=== PATIENT | female | born 2000 | race American Indian/Alaskan Native ===

== ENCOUNTER 2019-02-19 05:46 | Emergency (ER) | payer SELFPAY ==
[2019-02-19 06:22] VITALS: BMI 28.9
[2019-02-19 06:52] LABS: URINE BILIRUBIN SMALL (NEGATIVE); URINE BLOOD LARGE (NEGATIVE); URINE GLUCOSE (UA) NEGATIVE (NEGATIVE); URINE LEUKOCYTE ESTERASE TRACE Leu/uL (NEGATIVE); URINE PROTEIN 100 mg/dL (<30 mg/dL)
[2019-02-19 06:55] LABS: URINE APPEARANCE CLOUDY (CLEAR); URINE COLOR YELLOW (YELLOW)
[2019-02-19] MEDS ORDERED: cefTRIAXone (Rocephin) 250 mg Inj IM STA (07:14)
--- NOTE | 2019-02-19 07:19 | ED PDOC ---
Arrival/HPI - General Chief Complaint: Female Genitourinary Time Seen by Provider: 02/19/19 07:11 Historian: Patient - History of Present Illness Narrative History of Present Illness (Text): 02/19/19 07:11 Moon Jones is a 18 year old female, with no significant past medical history, who presents to the emergency department complaining of vaginal discharge since 1 month. Patient notes foul smelling urine and dysuria. Patient informs of sexual activity without protection. Patient is concerned for STD. Patient did not seek medical attention for current complaints. Patient denies any fevers, chills, headache, dizziness, chest pain, shortness of breath, dyspnea on exertion, cough, diaphoresis, abdominal pain, nausea, vomiting, diarrhea, hematuria, back pain, neck pain, rash, or any other complaint. Time/Duration: < month Symptom Onset: Gradual Symptom Course: Unchanged Activities at Onset: Light Context: Home Past Medical History - Provider Review Nursing Documentation Reviewed: Yes - Cardiac Hx Cardiac Disorders: No - Pulmonary Hx Respiratory Disorders: Yes Hx Asthma: Yes - Neurological Hx Neurological Disorder: No - HEENT Hx HEENT Disorder: No - Renal Hx Renal Disorder: No - Endocrine/Metabolic Hx Endocrine Disorders: No - Hematological/Oncological Hx Blood Disorders: No - Integumentary Hx Dermatological Disorder: No - Musculoskeletal/Rheumatological Hx Musculoskeletal Disorders: No - Gastrointestinal Hx Gastrointestinal Disorders: No - Genitourinary/Gynecological Hx Genitourinary Disorders: No - Psychiatric Hx Psychophysiologic Disorder: No Hx Substance Use: Yes - Anesthesia Hx Anesthesia: No Family/Social History - Physician Review Nursing Documentation Reviewed: Yes Family/Social History: Unknown Family HX Smoking Status: Never Smoked Hx Alcohol Use: Yes Frequency of alcohol use: Socially Hx Substance Use: Yes Substance used: Marijuana Allergies/Home Meds Allergies/Adverse Reactions: Allergies No Known Allergies Allergy (Unverified 02/19/19 07:01) Review of Systems - Physician Review All systems were reviewed & negative as marked: Yes - Review of Systems Constitutional: absent: Fevers, Other (chills) Respiratory: absent: SOB, Cough Cardiovascular: absent: Chest Pain, PASCUAL Gastrointestinal: absent: Abdominal Pain, Diarrhea, Nausea, Vomiting Genitourinary Female: Dysuria, Vaginal Discharge, Other (foul smelling urine). absent: Hematuria Musculoskeletal: absent: Back Pain, Neck Pain Skin: absent: Rash Neurological: absent: Headache, Dizziness Physical Exam Vital Signs Reviewed: Yes Vital Signs Temp Pulse Resp BP Pulse Ox 02/19/19 06:22 98.3 F 76 16 124/71 100 Temperature: Afebrile Blood Pressure: Normal Pulse: Regular Respiratory Rate: Normal Appearance: Positive for: Well-Appearing, Non-Toxic, Comfortable Pain Distress: None Mental Status: Positive for: Alert and Oriented X 3 - Systems Exam Head: Present: Atraumatic, Normocephalic Pupils: Present: PERRL Extroacular Muscles: Present: EOMI Conjunctiva: Present: Normal Mouth: Present: Moist Mucous Membranes Neck: Present: Normal Range of Motion Respiratory/Chest: Present: Clear to Auscultation, Good Air Exchange. No: Respiratory Distress, Accessory Muscle Use, Wheezes, Rales, Rhonchi Cardiovascular: Present: Regular Rate and Rhythm, Normal S1, S2. No: Murmurs, Rub, Gallop Abdomen: Present: Tenderness, Normal Bowel Sounds. No: Distention, Peritoneal Signs, Rebound, Guarding Genitourinary/Pelvic Exam: Present: Vaginal Discharge. No: Vaginal Bleeding Back: Present: Normal Inspection Upper Extremity: Present: Normal Inspection, NORMAL PULSES, Neurovascularly Intact, Capillary Refill < 2s. No: Cyanosis, Edema, Tenderness, Swelling Lower Extremity: Present: Normal Inspection, NORMAL PULSES, Neurovascularly Intact, Capillary Refill < 2 s. No: Edema, Tenderness, Swelling Neurological: Present: GCS=15, CN II-XII Intact, Speech Normal, Motor Func Grossly Intact, Normal Sensory Function Skin: Present: Warm, Dry, Normal Color. No: Rashes Psychiatric: Present: Alert, Oriented x 3, Normal Insight, Normal Concentration Medical Decision Making ED Course and Treatment: 02/19/19 07:11 Impression: Patient is a 18 year old female who presents to the emergency department complaining of vaginal discharge since 1 month. Patient did not seek medical attention for current complaints. Patient informs of sexual activity without protection. Denies pain or fevers. Plan: -- Rocephin -- Zithromax -- Urine Culture -- POC Urine Test -- Urinalysis w/ Micro -- Reassess and disposition Prior Visits: Notes and results from previous visits were reviewed. Progress Notes: 02/19/19 13:36 pt well appearin gabd soft no ttp. minimal vd noted. will tx for std. refuses testing. ua treated. stable for outpt mangement. return precautiosn advid. - Lab Interpretations Lab Results: Urine Color Yellow (YELLOW) 02/19/19 06:28 Urine Appearance Cloudy (CLEAR) 02/19/19 06:28 Urine pH 6.0 (4.7-8.0) 02/19/19 06:28 Ur Specific [place] >= 1.030 (1.005-1.035) 02/19/19 06:28 Urine Protein 100 mg/dL (<30 mg/dL) H 02/19/19 06:28 Urine Glucose (UA) Negative mg/dL (NEGATIVE) 02/19/19 06:28 Urine Ketones 15 mg/dL (NEGATIVE) H 02/19/19 06:28 Urine Blood Large (NEGATIVE) H 02/19/19 06:28 Urine Nitrate Negative (NEGATIVE) 02/19/19 06:28 Urine Bilirubin Small (NEGATIVE) H 02/19/19 06:28 Urine Urobilinogen 1.0 E.U./dL (<1 E.U./dL) H 02/19/19 06:28 Ur Leukocyte Esterase Trace Dewayne/uL (NEGATIVE) H 02/19/19 06:28 - Medication Orders Current Medication Orders: Discontinued Medications Azithromycin (Zithromax) 1,000 mg PO STAT STA; Protocol Stop: 02/19/19 07:15 Ceftriaxone Sodium (Rocephin) 250 mg IM STAT STA; Protocol Stop: 02/19/19 07:15 - Scribe Statement The provider has reviewed the documentation as recorded by the Scribjennifer Baig All medical record entries made by the Scribe were at my direction and personally dictated by me. I have reviewed the chart and agree that the record accurately reflects my personal performance of the history, physical exam, medical decision making, and the department course for this patient. I have also personally directed, reviewed, and agree with the discharge instructions and disposition. Disposition/Present on Arrival - Present on Arrival Any Indicators Present on Arrival: No History of DVT/PE: No History of Uncontrolled Diabetes: No Urinary Catheter: No History of Decub. Ulcer: No History Surgical Site Infection Following: None - Disposition Have Diagnosis and Disposition been Completed?: Yes Diagnosis: Vaginal discharge, UTI (urinary tract infection) Disposition: HOME/ ROUTINE Disposition Time: 08:00 Condition: STABLE Discharge Instructions (ExitCare): Urinary Tract Infections in Adults, Screening for Sexually Transmitted Infections, Vaginal Discharge in Adults Additional Instructions: return to er with worsening symptoms or concerns. Prescriptions: Nitrofurantoin Macrocrystals [Macrobid] 100 mg PO BID #14 cap Referrals: [facility] [Outside] - Follow up with primary [facility] at [facility] [place]] - Follow up with primary [facility] at [facility] [Outside] - Follow up with primary [facility] [Outside] - Follow up with primary Forms: [employer] (Sinhala)
[2019-02-19 07:21] LABS: URINE BACTERIA MANY /hpf; URINE EPITHELIAL CELLS MANY /hpf (0-5); URINE RBC 25 - 30 /hpf (0-2)
[2019-02-19 07:23] LABS: URINE COARSE GRANULAR CAST TRACE /hpf
[2019-02-19 08:34] VITALS: BP 118/76; PULSE 78; RESP 18; TEMP 98; O2SAT 99
== END 2019-02-19 08:36 | disposition home or self-care (01) ==
LOC: ED 05:46
DX: N39.0 Urinary tract infection, site not specified (principal); N89.8 Other specified noninflammatory disorders of vagina
CPT/HCPCS: 81001; 81025; 87086; 96372; 99283; J0696

== ENCOUNTER 2019-03-06 16:52 | Emergency (ER) | payer OTHER ==
[2019-03-06 16:53] VITALS: BMI 28.9
[2019-03-06] MEDS ORDERED: cefTRIAXone (Rocephin) 250 mg Inj IM STA (18:31)
--- NOTE | 2019-03-06 18:37 | ED PDOC ---
Arrival/HPI - General Historian: Patient - History of Present Illness Narrative History of Present Illness (Text): 03/06/19 18:34 Patient is a 18yo F with no significant PMH presenting to ED with vaginal discharge. She reports it began 1 month ago, and describes it as a thick white discharge with associated itch. She was previously treated in the ED on 02/19 for UTI and Chlamydia/Gonorrhea, and completed a course of Macrobid. She reports remaining sexually active with the same partner as before, without using protection. She denies previous history of pregnancies. She denies fever, chills, nausea, vomiting, abdominal pain, dysuria. She denies blood in the urine, joint pains, or rashes. FD of LMP 02/10 Time/Duration: > month Symptom Onset: Sudden Symptom Course: Unchanged <Jordin Breen - Last Filed: 03/06/19 19:50> <Alondra Bess - Last Filed: 03/06/19 20:07> - General Chief Complaint: Female Genitourinary Time Seen by Provider: 03/06/19 18:34 Past Medical History - Provider Review Primary Care Physician: NO FAMILY PROVIDER - Cardiac Hx Cardiac Disorders: No - Pulmonary Hx Respiratory Disorders: Yes Hx Asthma: Yes - Neurological Hx Neurological Disorder: No - HEENT Hx HEENT Disorder: No - Renal Hx Renal Disorder: No - Endocrine/Metabolic Hx Endocrine Disorders: No - Hematological/Oncological Hx Blood Disorders: No - Integumentary Hx Dermatological Disorder: No - Musculoskeletal/Rheumatological Hx Musculoskeletal Disorders: No - Gastrointestinal Hx Gastrointestinal Disorders: No - Genitourinary/Gynecological Hx Genitourinary Disorders: No - Psychiatric Hx Psychophysiologic Disorder: No Hx Substance Use: Yes - Anesthesia Hx Anesthesia: No <Jordin Breen - Last Filed: 03/06/19 19:50> - Provider Review Primary Care Physician: NO FAMILY PROVIDER <Alondra Bess - Last Filed: 03/06/19 20:07> Family/Social History Family/Social History: No Known Family HX Smoking Status: Light Smoker < 10 Cigarettes Daily Hx Alcohol Use: Yes Frequency of alcohol use: Socially Hx Substance Use: Yes Substance used: Marijuana <Jordin Breen - Last Filed: 03/06/19 19:50> Allergies/Home Meds <Jordin Breen - Last Filed: 03/06/19 19:50> <BessAlondra - Last Filed: 03/06/19 20:07> Allergies/Adverse Reactions: Allergies No Known Allergies Allergy (Verified 03/06/19 17:00) Review of Systems - Review of Systems Constitutional: Normal Eyes: Normal ENT: Normal Respiratory: Normal Cardiovascular: Normal Gastrointestinal: Normal Genitourinary Female: Vaginal Discharge. absent: Dysuria Musculoskeletal: Normal Skin: Normal Neurological: Normal Endocrine: Normal Hemo/Lymphatic: Normal Psychiatric: Normal <Jordin Breen - Last Filed: 03/06/19 19:50> Physical Exam Vital Signs Reviewed: Yes Vital Signs Temp Pulse Resp BP Pulse Ox 03/06/19 16:56 98.5 F 78 18 108/68 99 Temperature: Afebrile Blood Pressure: Normal Pulse: Regular Respiratory Rate: Normal Appearance: Positive for: Well-Appearing, Non-Toxic, Comfortable Pain Distress: None Mental Status: Positive for: Alert and Oriented X 3 - Systems Exam Head: Present: Atraumatic, Normocephalic Extroacular Muscles: Present: EOMI Mouth: Present: Moist Mucous Membranes Respiratory/Chest: No: Respiratory Distress, Accessory Muscle Use Cardiovascular: Present: Regular Rate and Rhythm Abdomen: No: Tenderness, Distention Genitourinary/Pelvic Exam: Present: Normal External Genitalia, Vaginal Discharge (thick white discharge in vaginal canal), Odor (fishy odor). No: Vaginal Bleeding, Vaginal Lesions Upper Extremity: Present: Normal Inspection. No: Cyanosis, Edema Lower Extremity: Present: Normal Inspection. No: Edema Neurological: Present: GCS=15, Speech Normal Skin: Present: Warm, Normal Color. No: Dry, Rashes Psychiatric: Present: Alert, Oriented x 3, Normal Insight, Normal Concentration <Jordin Breen - Last Filed: 03/06/19 19:50> Vital Signs Temp Pulse Resp BP Pulse Ox 03/06/19 18:53 72 16 102/59 L 99 03/06/19 16:56 98.5 F 78 18 108/68 99 <BessAlondra - Last Filed: 03/06/19 20:07> Medical Decision Making ED Course and Treatment: 03/06/19 18:39 Likely Vaginal Candidiasis, Treat for Bacterial Vaginosis, Gonorrhea and Chlamydia. - UA - POC - GC/Chlamydia Urine - 1 dose Diflucan - Rocephin IM - Azithromycin - Flagyl Counseled patient on importance of safe sex practices and need to follow up with [facility]. - Medication Orders Current Medication Orders: Azithromycin (Zithromax) 1,000 mg PO STAT STA; Protocol Stop: 03/06/19 18:33 Ceftriaxone Sodium (Rocephin) 250 mg IM STAT STA; Protocol Stop: 03/06/19 18:32 Fluconazole (Diflucan) 150 mg PO STAT STA; Protocol Stop: 03/06/19 18:32 Metronidazole (Flagyl) 500 mg PO STAT STA; Protocol Stop: 03/06/19 18:31 <Jordin Breen - Last Filed: 03/06/19 19:50> ED Course and Treatment: 03/06/19 20:07 Patient Seen with Resident: In agreement with resident note which contains more details about the patient. Patient seen and evaluated with resident. Came up with plan and treatment together. - Lab Interpretations Lab Results: Urine Color Yellow (YELLOW) 03/06/19 18:30 Urine Appearance Cloudy (CLEAR) 03/06/19 18:30 Urine pH 8.0 (4.7-8.0) 03/06/19 18:30 Ur Specific [place] 1.020 (1.005-1.035) 03/06/19 18:30 Urine Protein Trace mg/dL (<30 mg/dL) H 03/06/19 18:30 Urine Glucose (UA) Negative mg/dL (NEGATIVE) 03/06/19 18:30 Urine Ketones Negative mg/dL (NEGATIVE) 03/06/19 18:30 Urine Blood Moderate (NEGATIVE) H 03/06/19 18:30 Urine Nitrate Negative (NEGATIVE) 03/06/19 18:30 Urine Bilirubin Negative (NEGATIVE) 03/06/19 18:30 Urine Urobilinogen 1.0 E.U./dL (<1 E.U./dL) H 03/06/19 18:30 Ur Leukocyte Esterase Negative Dewayne/uL (NEGATIVE) 03/06/19 18:30 Urine RBC Tntc /hpf (0-2) H 03/06/19 18:30 Urine WBC 10 - 15 /hpf (0-6) H 03/06/19 18:30 Ur Epithelial Cells 10 - 12 /hpf (0-5) H 03/06/19 18:30 Amorphous Sediment Many /hpf (NONE) 03/06/19 18:30 Urine Bacteria Many /hpf (NONE) 03/06/19 18:30 - Medication Orders Current Medication Orders: Discontinued Medications Azithromycin (Zithromax) 1,000 mg PO STAT STA; Protocol Stop: 03/06/19 18:33 Last Admin: 03/06/19 18:55 Dose: 1,000 mg Ceftriaxone Sodium (Rocephin) 250 mg IM STAT STA; Protocol Stop: 03/06/19 18:32 Last Admin: 03/06/19 18:54 Dose: 250 mg IM Administration Charges Document 03/06/19 18:54 MA (Rec: 03/06/19 18:55 [id number] Injection Site MAR Injection Site Left Deltoid Charges for Administration # of IM Administrations 1 Fluconazole (Diflucan) 150 mg PO STAT STA; Protocol Stop: 03/06/19 18:32 Last Admin: 03/06/19 18:55 Dose: 150 mg Metronidazole (Flagyl) 500 mg PO STAT STA; Protocol Stop: 03/06/19 18:31 Last Admin: 03/06/19 18:55 Dose: 500 mg <Alondra Bess - Last Filed: 03/06/19 20:07> Disposition/Present on Arrival - Present on Arrival Any Indicators Present on Arrival: No History of DVT/PE: No History of Uncontrolled Diabetes: No Urinary Catheter: No History of Decub. Ulcer: No History Surgical Site Infection Following: None - Disposition Have Diagnosis and Disposition been Completed?: Yes Disposition Time: 19:51 <Jordin Breen - Last Filed: 03/06/19 19:50> <Alondra Bess - Last Filed: 03/06/19 20:07> - Disposition Diagnosis: Vaginal candidiasis, Bacterial vaginosis Patient Problems: Current Active Problems Problem Status Onset Vaginal candidiasis Acute Bacterial vaginosis Acute Condition: STABLE Discharge Instructions (ExitCare): Bacterial Vaginosis (DC), Vaginal Yeast Infection (DC), Gonorrhea (DC) Additional Instructions: Please follow up with primary care and Women's health within 2 days. Practice safe sex, always using barrier protection. If symptoms worsen, return to the emergency department. Prescriptions: metroNIDAZOLE [Flagyl] 500 mg PO BID #14 tab Referrals: FAMILY PROVIDER,NO [Primary Care Provider] - Follow up with primary [facility] [Outside] - Follow up with primary [facility] [Provider Group] - Follow up with primary [facility] at [facility] [place]Outside] - Follow up with primary Forms: [employer] (Sinhala)
[2019-03-06 18:44] LABS: URINE BILIRUBIN NEGATIVE (NEGATIVE); URINE BLOOD MODERATE (NEGATIVE); URINE GLUCOSE (UA) NEGATIVE (NEGATIVE); URINE LEUKOCYTE ESTERASE NEGATIVE Leu/uL (NEGATIVE); URINE PROTEIN TRACE mg/dL (<30 mg/dL)
[2019-03-06 18:50] LABS: URINE APPEARANCE CLOUDY (CLEAR); URINE COLOR YELLOW (YELLOW)
[2019-03-06 18:51] LABS: URINE AMORPHOUS SEDIMENT MANY /hpf; URINE BACTERIA MANY /hpf; URINE RBC TNTC /hpf (0-2)
[2019-03-06 20:09] VITALS: BP 102/82; PULSE 88; RESP 18; TEMP 98.1; O2SAT 98
== END 2019-03-06 20:09 | disposition home or self-care (01) ==
LOC: ED 16:52
DX: B37.3 Candidiasis of vulva and vagina (principal); B96.89 Other specified bacterial agents as the cause of diseases classified elsewhere; F17.210 Nicotine dependence, cigarettes, uncomplicated
CPT/HCPCS: 81001; 81025; 87086; 87491; 87591; 96372; 99283; J0696